=== PATIENT | male | born 1970 | race Caucasian/White ===

== ENCOUNTER 2020-05-07 12:18 | Emergency (ER) | payer OTHER ==
[~2020-05-07] VITALS: Ht 170.2 cm; Wt 106.1 kg
[2020-05-07 12:36] VITALS: BP 162/93
[2020-05-07 12:40] VITALS: BP 162/93
--- NOTE | 2020-05-07 12:44 | NUR ---
ARRIVAL PATIENT ARRIVED TO ED5 AMBULATORY, C/O OF RIGHT RING FINGER INJURY SINCE SATURDAY, PATIENT STATES HE WAS ROCKING IN A CHAIR WHEN HIS RIGHT INDEX FINGER GOT CAUGHT IN THE CHAIR, HE WAS IN ROUTE TO [place] TO SEE HIS FATHER AND DIDN'T HAVE TIME TO STOP AND GET TREATED SO HE WRAPPED IT UP AND WAITED UNTIL HE WAS IN [place] TO SEEK TREATMENT, ON ASSESSMENT RIGHT RING FINGER TIP IS BLACKENED AND MODELED IN COLOR, SMALL AMOUNT OF CLEAR DRAINAGE NOTED, CLEANED WITH STERILE WATER, VITAL SIGNS OBTAINED AND DOCTOR JIMBO NOTIFIED OF PATIENT'S ARRIVAL..
[2020-05-07] MEDS ORDERED: ADACEL VIAL IM ONE ×2 (12:52→13:00)
--- NOTE | 2020-05-07 12:58 | ER.PDOC ---
General Chief Complaint: Trauma Stated Complaint: RIGHT HAND INJURY Time seen by MD: 12:54 Source: patient Exam Limitations: no limitations History of Present Illness Initial Comments Crush injury to right index finger with partial amputation 5 days ago. Severity: moderate Context: crush Location of Injury: (L) hand Modifying Factors: pain on movement Allergies: Coded Allergies: No Known Allergies (Unverified , 05/07/20) Past Medical History Medical History: diabetes Surgical History: hip Family History Significant Family History: no pertinent family hx Social History Alcohol Use: occassionally Drug Use: none Review of Systems Constitutional: no symptoms reported Respiratory: no symptoms reported Cardiovascular: no symptoms reported Gastrointestinal: no symptoms reported Musculoskeletal: see HPI All Other Systems: Reviewed and Negative Physical Exam General Appearance: Alert, No Apparent Distress Hand: see diagram Wrist: nml inspection, non-tender, nml ROM 1 - partial amputation distal right ring finger with necrosis Vascular: pallor Tendons: tendon function nml Forearm/Elbow/Arm: uninjured above wrist Head/ENT: nml inspection, pharynx nml Neck/Back: nml inspection, non-tender Resp/CVS: no resp distress, lungs clear, heart sounds nml, reg. rate & rhythm Abdomen: non-tender, no organomegaly Results/Orders Results/Orders Orders - ROLA CHOI MD Diph,Pertuss(Acell),Tet Vac/Pf (Adacel V (05/07/20 13:00) Diph,Pertuss(Acell),Tet Vac/Pf (Adacel V (05/07/20 12:52) Xr Hand Rt (05/07/20 12:44) Lidocaine Hcl (Lidocaine 1% Vial) (05/07/20 13:20) Water For Irrigation,Sterile (Water) (05/07/20 13:35) Neomycin/Bacitracin/Polymyxinb (Triple A (05/07/20 13:39) Vital Signs Date Time Temp Pulse Resp B/P (MAP) Pulse Ox O2 Delivery O2 Flow Rate FiO2 05/07/20 12:41 18 05/07/20 12:40 98.0 89 18 98 05/07/20 12:36 98.0 89 18 05/07/20 12:36 98.0 89 18 162/93 (116) 98 Room Air 05/07/20 12:36 98.0 89 18 98 Administered Medications Medications (Trade) Dose Ordered Sig/Presley Route PRN Reason Start Time Stop Time Status Last Admin Dose Admin Diphtheria/ Tetanus/Acell Pertussis (Adacel Vial) 0.5 ml ONCE ONCE IM 05/07/20 13:00 05/07/20 13:01 DC 05/07/20 12:57 0.5 ML Progress Progress X rays Right ring finger: Comminuted fracture of the tuft of the 4th finger with adjacent soft tissue laceration. Dr. Wise came and took care of patient here. ER DEPART Departure Time of Disposition: 13:57 Disposition: 01 HOME, SELF-CARE Impression: Primary Impression: Partial traumatic amputation of finger through phalanx Additional Impression: Open fracture of tuft of distal phalanx of finger Condition: Stable Referrals: PCP,UNKNOWN (PCP) PRIMARY CARE PROVIDER Additional Instructions: Take medication as prescribed by Dr. Wise F/U with Dr. Wise as instructed Return to ED if any concerns Duration or Time Spent with Pa: 20 min Problem Qualifiers Primary Impression: Partial traumatic amputation of finger through phalanx Encounter type: initial encounter Qualified Codes: S68.629A - Partial traumatic transphalangeal amputation of unspecified finger, initial encounter ROLA CHOI MD May 07, 2020 12:58
--- NOTE | 2020-05-07 12:58 | NUR ---
DR MIGUEL GUTIERREZ MBA SPOKE WITH DR RIVERA WHO WILL BE HERE SHORTLY TO ASSESS THE PT.
--- NOTE | 2020-05-07 13:16 | NUR ---
RIVERA DOCTOR MIGUEL HERE TO SEE PATIENT.
--- NOTE | 2020-05-07 13:18 | DIREP ---
PROCEDURE:XRAY HAND MIN 3 VW-RT COMPARISON:None. INDICATIONS:Pain/injury ring finger FINDINGS: BONES:Comminuted fracture with displaced fragments at the tip of the 4th finger. Small osteophytes at the 1st CMC joint. JOINTS:1st CMC joint space loss. SOFT TISSUES:There is a deep laceration of the tip of the 4th finger. OTHER:No additional findings. CONCLUSION:Comminuted fracture of the tuft of the 4th finger with adjacent soft tissue laceration. Dictated by: Juan Alberto Villalta M.D. on 05/07/2020 at 01:15 PM
[2020-05-07] MEDS ORDERED: LIDOCAINE 1% VIAL ONE (13:20)
[2020-05-07] MEDS ORDERED: WATER ONE (13:35)
[2020-05-07] MEDS ORDERED: TRIPLE ANTIBIOTIC OINTMENT TP ONE (13:39)
--- NOTE | 2020-05-07 13:56 | NUR ---
WOUND DR RIVERA AMPUATED TIP OF LEFT 5TH FINGER, CLEANED AND DRESSED THE WOUND WITH TRIPLE A, NON ADHERANT, KERLIX AND COBAN. WOUND CARE INSTRUCTIONS PROVIDED TO PT BY DR RIVERA WITH UNDERSTANDING VERBALIZED.
--- NOTE | 2020-05-07 14:40 | ER.CONS ---
DATE OF SERVICE: 05/07/2020 CHIEF COMPLAINT: Painful right ring finger. HISTORY OF PRESENT ILLNESS: The patient is a 49-year-old male who injured his right ring finger several days ago. He had the tip of his finger smashed by a metal rocker that he was sitting in. The patient, for some reason, was unable to access any medical care, so he came to the Emergency Room today when he got back to the [place]. The patient was seen and evaluated by Dr. Mandujano and I was consulted for further evaluation and treatment. PHYSICAL EXAMINATION: The patient's exam shows that he has a near amputation of the very distal tip of his right ring finger. The distal 2-3 mm of his fingertip is black and has no sensation. The level of the amputation is just the soft tissue distal to the distal end of his nail. Otherwise, his neurovascular exam is normal. He has no history of fever or chills and there is no redness about the rest of his finger. He has no [place] signs. ASSESSMENT: Soft tissue amputation of the distal aspect of the right ring finger. PLAN: The finger was anesthetized with 1% lidocaine digital block about the metacarpal head. The finger was then sterilely prepped and draped. On exploration, the patient had satisfactory soft tissue coverage about the distal end of his distal phalanx. There was no protrusion of the bone. The necrotic skin about the tip of the finger was then sharply amputated with a 15 blade. The wounds were then irrigated and dressed with Neosporin, Adaptic, 4 x 4s, and Marbin wrap. The patient will be given a prescription for Keflex 500 mg 3 times a day for the next 3 days. He will keep the finger clean and dry, and he will be seen in my office in 2 days. He can use Tylenol and Advil for the pain. Erwin Wise MD DR: JORGE/carlos JOB# [id number]
== END 2020-05-07 14:03 | disposition home or self-care (01) ==
LOC: ER 12:18
DX: S68.620A Partial traumatic transphalangeal amputation of right index finger, initial encounter (principal); W23.0XXA Caught, crushed, jammed, or pinched between moving objects, initial encounter; Y93.89 Activity, other specified; Y92.89 Other specified places as the place of occurrence of the external cause; Y99.8 Other external cause status
CPT/HCPCS: 64400; 73130; 90715; 96374; 99284; J2001

== ENCOUNTER 2020-08-21 14:09 | Emergency (ER) | payer OTHER ==
[~2020-08-21] VITALS: Ht 157.5 cm; Wt 90.7 kg
[2020-08-21 14:25] VITALS: BP 158/90
[2020-08-21] MEDS ORDERED: LOPRESSER PO STA (14:26)
[2020-08-21 14:30] VITALS: BP 158/90
--- NOTE | 2020-08-21 14:30 | PCM.EKG ---
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
[2020-08-21] MEDS ORDERED: LOPRESSER ONE (14:33)
--- NOTE | 2020-08-21 14:33 | ER.PDOC ---
General Chief Complaint: Chest Pain-Cardiac Nature Stated Complaint: palpitations Time seen by MD: 14:00 Source: patient Exam Limitations: no limitations History of Present Illness Timing/Duration: 4-6 hours Quality: fast Activities at Onset: emotional stress History of: caffeine Modifying Factors: rest Associated Symptoms: denies symptoms Prior symptoms/Treatment: Similar symptoms previous Allergies: Coded Allergies: No Known Allergies (Unverified , 05/07/20) Past Medical History Medical History: diabetes Surgical History: hip Social History Alcohol Use: occassionally Drug Use: none Reviewed Nursing Reviewed: Vital Signs, Abn. Noted All Other Systems: Reviewed and Negative Physical Exam General Appearance: No Apparent Distress, WD/WN HEENT: PERRL/EOMI, Normal ENT Inspection, TMs Normal, Pharynx Normal Neck: Non-Tender, Full Range of Motion, Supple, Normal Inspection Respiratory: chest non-tender, lungs clear, normal breath sounds, no respiratory distress, no accessory muscle use Cardiovascular: Normal Peripheral Pulses, Regular Rate, Rhythm, No Edema, No Gallop, No JVD, No Murmur Gastrointestinal: Normal Bowel Sounds, No Organomegaly, No Pulsatile Mass, Non Tender, Soft Extremities: Normal Range of Motion, Non-Tender, Normal Inspection, No Pedal Edema, No Calf Tenderness, Normal Capillary Refill 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 (08/21/20 14:26) D-Dimer (08/21/20 14:26) Xr Chest 1v (08/21/20 14:26) Ekg-Routine (08/21/20 14:26) Metoprolol Tartrate (Lopresser) (08/21/20 14:26) Vital Signs Date Time Temp Pulse Resp B/P (MAP) Pulse Ox O2 Delivery O2 Flow Rate FiO2 08/21/20 14:25 98.6 98 18 98 08/21/20 14:25 98.6 98 18 EKG/XRAY/CT/US EKG: NSR, no ST T wave changes ER DEPART Departure Time of Disposition: 14:33 Disposition: 01 HOME, SELF-CARE Impression: Primary Impression: Palpitations Condition: Improved Referrals: PCP,UNKNOWN (PCP) PRIMARY CARE PROVIDER Duration or Time Spent with Pa: SelinaM ANGEL MOLINA MD Aug 21, 2020 14:33
[2020-08-21 14:41] LABS: BASOPHIL % 0.2 % (0.0-0.2); EOSINOPHIL # 0.2 10^3/uL (0.0-0.2); EOSINOPHIL % 2.7 % (0.0-5.0); LYMPHOCYTES # 1.14 10^3/uL1 (1.0-4.8); LYMPHOCYTES % 20.2 % (24.0-44.0); MEAN CORP HGB 31.3 pg (26-34); MONOCYTES # 0.4 10^3/uL (0.3-0.8); MONOCYTES % 6.2 % (5.0-12.0); NEUTROPHILS % 70.3 % (41.0-85.0); PLATELET COUNT 143 10^3/uL (150-400); RED CELL DISTRIBUTION WIDTH 12.8 % (11.5-14.5)
[2020-08-21 15:07] LABS: ALANINE AMINOTRANSFERASE(ML) 80 U/L (12-78); ALKALINE PHOSPHATASE 76 U/L (50-136); ASPARTATE AMINO TRANSFERASE 52 U/L (0-35); CALCIUM 9.6 mg/dL (8.4-10.5); CARBON DIOXIDE 27.9 mmol/L (20.0-32); GLUCOSE 300 mg/dL (70-110)
--- NOTE | 2020-08-21 15:11 | DIREP ---
PROCEDURE:CHEST 1 VIEW COMPARISON:None. INDICATIONS:palpitations FINDINGS: LUNGS/PLEURA:No focal consolidation, pleural effusion or pneumothorax. VASCULATURE:Normal. Unremarkable pulmonary vasculature. CARDIAC:Mild cardiomegaly. MEDIASTINUM:Normal. No visible mass or adenopathy. BONES:Normal. No fracture or visible bony lesion. OTHER:Negative. CONCLUSION:No active cardiopulmonary process demonstrated. Dictated by: Zackery Drake M.D. on 08/21/2020 at 03:09 PM
== END 2020-08-21 15:35 | disposition home or self-care (01) ==
LOC: ER 14:32
DX: R00.2 Palpitations (principal); E11.9 Type 2 diabetes mellitus without complications; R79.1 Abnormal coagulation profile
CPT/HCPCS: 36415; 71045; 80053; 82550; 82553; 83880; 84484; 85025; 85379; 85610; 85730; 93005; 99285